=== PATIENT | male | born 1985 | race Caucasian/White ===

== ENCOUNTER 2019-01-27 19:02 | Emergency (ER) | payer OTHER ==
[~2019-01-27] VITALS: Ht 167.6 cm; Wt 73.9 kg
[2019-01-27] MEDS ORDERED: ERYT1OIN LEFTEYE (20:02)
== END 2019-01-27 20:27 | disposition home or self-care (01) ==
LOC: ER 19:02
DX: S05.02XA Injury of conjunctiva and corneal abrasion without foreign body, left eye, initial encounter (principal); W22.8XXA Striking against or struck by other objects, initial encounter
CPT/HCPCS: 99282; A9270